=== PATIENT | male | born 1935 | race Caucasian/White ===

== ENCOUNTER 2017-06-04 05:17 | Day surgery (SDC) | payer MEDICARE, BC ==
[~2017-06-04] VITALS: Ht 185.4 cm; Wt 84.8 kg
[~2017-06-04 05:17] MED LIST: FOLI-17 PO; HYDR200T PO; IBUP200C8 PO; LEVO100T5 PO; LOSA100T6 PO; LOVA20TA2 PO; METH2.5T PO; OXYC-302 PO; PRED5TAB PO
[2017-06-04] MEDS ORDERED: LACTATED RINGERS 1,000 ML IV SCH (06:01)
[2017-06-04] MEDS ORDERED: NIAC500C3 PO (06:07)
[2017-06-04] MEDS ORDERED: IBUP200C8 PO (06:08)
[2017-06-04 06:14] VITALS: BP 166/66
[2017-06-04] MEDS ORDERED: EPINEPHRINE 1 MG/ML, 1ML ONE (06:17)
[2017-06-04] MEDS ORDERED: BUPIVACAINE/PF 0.5% ONE (06:17)
[2017-06-04] MEDS ORDERED: LIDOCAINE 1%, 2ML SQ PRN (06:30)
[2017-06-04] MEDS ORDERED: MIDAZOLAM 1 MG/ML, 2ML ONE (06:44)
[2017-06-04] MEDS ORDERED: FENTANYL PF 100 MCG/2ML ONE ×2 (06:44→07:43)
[2017-06-04] MEDS ORDERED: ONDANSETRON 2MG/ML, 2ML ONE (06:58)
[2017-06-04] MEDS ORDERED: DEXAMETHASONE 4 MG/ML, 1ML ONE (06:58)
[2017-06-04] MEDS ORDERED: CEFAZOLIN 1,000 MG ONE (06:58)
[2017-06-04 07:01] LABS: ASPARTATE AMINO TRANSFERASE 8 U/L (15-37); BLOOD UREA NITROGEN 8 mg/dL (7-18)
[2017-06-04] MEDS ORDERED: PROPOFOL 10 MG/ML, 20ML ONE (07:20)
[2017-06-04] MEDS ORDERED: BUPIVACAINE/PF 0.5% INFIL ONE (07:26)
[2017-06-04] MEDS ORDERED: EPINEPHRINE 1 MG/ML, 1ML INFIL ONE (07:30)
[2017-06-04] MEDS ORDERED: OXYcodone 5 MG/5 ML ORAL.SOL UDC ONE (07:43)
[2017-06-04] MEDS ORDERED: ACETAMINOPHEN 650 MG/20.3 ML UDC ONE (07:43)
[2017-06-04] MEDS: FENTANYL PF 100 MCG/2ML IV PRN ×3 (07:46→07:59)
[2017-06-04] MEDS ORDERED: EPHEDRINE 50 MG/ML, 1ML IVPush PRN (08:00)
[2017-06-04] MEDS ORDERED: ALBUTEROL SULFATE 2.5 MG/3 ML NPPB PRN (08:00)
[2017-06-04] MEDS ORDERED: hydrALAzine 20 MG/ML, 1ML IV PRN (08:00)
[2017-06-04] MEDS ORDERED: ONDANSETRON 2MG/ML, 2ML IVPush PRN (08:00)
[2017-06-04] MEDS ORDERED: METOPROLOL 1 MG/ML, 5ML IV PRN (08:00)
[2017-06-04] MEDS ORDERED: MEPERIDINE/PF 25MG/0.5ML IVPush PRN (08:00)
[2017-06-04] MEDS ORDERED: HYDROcodone/APAP 7.5-325MG/15ML UDC PO PRN (08:00)
[2017-06-04] MEDS ORDERED: ACETAMINOPHEN 325 MG TABLET PO PRN (08:00)
[2017-06-04] MEDS ORDERED: OXYcodone 5 MG/5 ML ORAL.SOL UDC PO PRN (08:00)
[2017-06-04] MEDS ORDERED: PROMETHAZINE 25 MG/ML, 1ML IV PRN (08:00)
[2017-06-04] MEDS ORDERED: LABETALOL 5MG/ML, 20ML IV PRN (08:00)
[2017-06-04] MEDS ORDERED: HYDROmorphone 1 MG/ML, 1ML IV PRN (08:00)
[2017-06-04] MEDS ORDERED: MEPERIDINE/PF 25MG/0.5ML ONE (08:15)
== END 2017-06-04 10:00 ==
LOC: OUT 05:17
PROVIDERS: ATTEND Orthopaedic Surgery
DX: M70.22 Olecranon bursitis, left elbow (principal); I10 Essential (primary) hypertension; E03.9 Hypothyroidism, unspecified; Z87.39 Personal history of other diseases of the musculoskeletal system and connective tissue; Z86.73 Personal history of transient ischemic attack (TIA), and cerebral infarction without residual deficits
CPT/HCPCS: 24105; 36415; 80053; 87070; 87075; 87205; 93005; J0171; J0690; J1100; J2175; J2250; J2405; J2704; J3010; J3490; J7120

== ENCOUNTER 2020-04-29 15:41 | Observation (INO) | payer MEDICARE, BC ==
[~2020-04-29] VITALS: Ht 185.4 cm; Wt 83.0 kg
[~2020-04-29 15:41] MED LIST changes: -HYDR200T PO; +HYDR200T72 PO; +LEFL10TA14 PO; +LOSA100T14 PO; -LOSA100T6 PO; +NIAC500C3 PO; +TRAM50TA2 PO
--- NOTE | 2020-04-29 15:49 | NUR ---
DIRECTOR OF BUSINESS SERVICES: EKG DONE IN TRIAGE
--- NOTE | 2020-04-29 16:27 | NUR ---
PT CAME IN CO OF NUMBNESS ON THE BOTTOM OF HIS RIGHT FOOT. PT ALSO CO OF MINOR SWELLING ON RIGHT LET. CMS INTACT. PT IS ACCOMPANIED BY AND DAUGHTER. PT AND FAMILY EDUCATED ON PLAN OF CARE. PT IS CONNECTED TO MONITORING EQUIPMENT.
[2020-04-29 16:36] LABS: BASOPHILS % (AUTO) 2 % (0-1); EOSINOPHILS % (AUTO) 8 % (1-7); LYMPHOCYTES % (AUTO) 22 % (22-44); MEAN CORPUSCULAR HEMOGLOBIN 32.8 pg (27.5-34.5); MEAN CORPUSCULAR HGB CONC 33.3 g/dL (33.2-36.2); MEAN PLATELET VOLUME 7.9 fL (7.4-10.4); MONOCYTES % (AUTO) 12 % (2-9); NEUTROPHILS % (AUTO) 57 % (42-75); PLATELET COUNT 257 x10^3/uL (130-400); RED BLOOD COUNT 3.73 x10^6/uL (4.38-5.82); RED CELL DISTRIBUTION WIDTH 15.8 % (9.4-14.8)
[2020-04-29 16:37] LABS: MD NO
[2020-04-29 16:44] LABS: ALANINE AMINOTRANSFERASE 16 U/L (12-78); ALBUMIN 3.4 g/dL (3.4-5.0); ANION GAP 5 mmol/L (5-15); CALCIUM 9.1 mg/dL (8.5-10.1); CHLORIDE 109 mmol/L (98-107); CREATININE 0.84 mg/dL (0.7-1.3)
[2020-04-29 16:46] LABS: ALKALINE PHOSPHATASE 75 U/L (45-117); BILIRUBIN,TOTAL 0.8 mg/dL (0.2-1.0); TOTAL PROTEIN 7.1 g/dL (6.4-8.2)
--- NOTE | 2020-04-29 16:58 | NUR ---
US AT BEDSIDE NOW
--- NOTE | 2020-04-29 18:27 | NUR ---
MEAL TRAY ORDERED FOR PT. MAURICIO DODSON APPROVED.
[2020-04-29] MEDS ORDERED: MELATONIN 5 MG TABLET PO PRN (20:00)
[2020-04-29] MEDS ORDERED: ONDANSETRON 2MG/ML, 2ML IVPush PRN (20:00)
[2020-04-29] MEDS ORDERED: ENALAPRILAT 1.25 MG/ML, 2ML IVPush PRN (20:00)
[2020-04-29] MEDS ORDERED: ACETAMINOPHEN 325 MG TABLET PO PRN (20:00)
[2020-04-29 20:17] VITALS: BP 172/71
[2020-04-29] MEDS ORDERED: LABETALOL 5MG/ML, 20ML IVPush PRN (20:30)
[2020-04-29] MEDS ORDERED: ATORVASTATIN 80 MG TABLET PO SCH (21:00)
[2020-04-29 21:48] VITALS: BP 136/70
[2020-04-29 22:11] LABS: FREE T4 (FREE THYROXINE) 0.89 ng/dL (0.76-1.46)
[2020-04-30 01:21] VITALS: BP 155/77
[2020-04-30 04:35] LABS: BASOPHILS % (AUTO) 1 % (0-1); EOSINOPHILS % (AUTO) 12 % (1-7); LYMPHOCYTES % (AUTO) 21 % (22-44); MEAN CORPUSCULAR HEMOGLOBIN 32.4 pg (27.5-34.5); MEAN CORPUSCULAR HGB CONC 32.7 g/dL (33.2-36.2); MEAN PLATELET VOLUME 8.2 fL (7.4-10.4); MONOCYTES % (AUTO) 15 % (2-9); NEUTROPHILS % (AUTO) 51 % (42-75); PLATELET COUNT 236 x10^3/uL (130-400); RED CELL DISTRIBUTION WIDTH 15.8 % (9.4-14.8)
[2020-04-30 04:36] LABS: MD NO
[2020-04-30 04:48] LABS: ANION GAP 5 mmol/L (5-15); CALCIUM 8.6 mg/dL (8.5-10.1); CHLORIDE 108 mmol/L (98-107); CREATININE 0.73 mg/dL (0.7-1.3)
[2020-04-30 04:51] LABS: CHOL/HDL RATIO 2.1; CHOLESTEROL, TOTAL 169 mg/dL (140-239); HDL CHOL % 47 % (26-37); HDL CHOLESTEROL (DIRECT) 79 mg/dL (40-60); LDL CHOLESTEROL,CALCULATED 79 mg/dL (54-169); TRIGLYCERIDES 53 mg/dL (50-200); VLDL CHOLESTEROL 11 mg/dL (0-25)
[2020-04-30 07:26] VITALS: BP 134/83
[2020-04-30] MEDS ORDERED: LOSARTAN 100 MG TAB PO SCH (09:00)
[2020-04-30] MEDS ORDERED: ASPIRIN 81 MG TABLET CHEW PO/NG SCH (09:00)
[2020-04-30] MEDS ORDERED: FLU VACC QS2020-21(6MOS UP)/PF 60MCG/0.5 ML SYR IM-VACC ONE (11:30)
== END 2020-04-30 12:08 | disposition home or self-care (01) ==
LOC: ED 17:44 → INTOOBSV 18:00 → EDIP 18:00 → 4WST 20:06 → DCLOUNGE 04-30 12:00
PROVIDERS: ADMIT Family Medicine; ATTEND Hospitalist
DX: G62.9 Polyneuropathy, unspecified (principal); D53.9 Nutritional anemia, unspecified; I10 Essential (primary) hypertension; E78.5 Hyperlipidemia, unspecified; I25.10 Atherosclerotic heart disease of native coronary artery without angina pectoris; M06.9 Rheumatoid arthritis, unspecified; M71.21 Synovial cyst of popliteal space [Baker], right knee; D84.821 Immunodeficiency due to drugs; Z79.899 Other long term (current) drug therapy; Z23 Encounter for immunization
CPT/HCPCS: 36415; 70551; 80048; 80053; 80061; 82607; 84439; 84443; 85025; 90686; 93005; 93971; 96374; 99285; G0008; G0378